=== PATIENT | male | born 1990 | race Caucasian/White ===

== ENCOUNTER 2022-08-06 21:23 | Inpatient (IN) | payer OTHER, SELFPAY ==
[2022-08-06] MEDS ORDERED: FAMOTIDINE 20 MG/2 ML VIAL IV ONE (22:04)
[2022-08-06] MEDS ORDERED: ONDANSETRON 4 MG/2 ML VIAL ONE (22:04)
[2022-08-06 22:24] LABS: Hematocrit 51.8 % (39.6-49.0); Lymphocytes % 12.4 % (15.3-44.8); MCV 90.4 fL (80-100); MPV 8.3 fL (7.6-11.3); RBC Red Blood Cell Count 5.73 M/uL (4.33-5.43)
[2022-08-06] MEDS ORDERED: NA CHLORIDE 0.9% 1,000 ML ONE (23:07)
[2022-08-06 23:36] LABS: Albumin 4.7 g/dL (3.4-5.0); Bilirubin Total 0.5 mg/dL (0.2-1.0); Potassium 4.2 mmol/L (3.5-5.1); Protein, Total 8.3 g/dL (6.4-8.2)
--- NOTE | 2022-08-06 23:36 | RAD REPORT ---
EXAM DESCRIPTION: CT - Abdomen Pelvis W Contrast - 08/06/2022 11:26 pm CLINICAL HISTORY: Abdominal pain COMPARISON: 2011 TECHNIQUE: Computed axial tomography of the abdomen pelvis was obtained. 100 cc Isovue-300 was admin istered intravenously. Oral contrast was not requested which limits evaluation of bowel and appendix All CT scans are performed using dose optimization technique as appropriate and may include automated exposure control or mA/KV adjustment according to patient size. FINDINGS: The liver, spleen, pancreas, adrenal and kidneys appear unremarkable. There is no evidence of diverticulitis. A normal appendix. Fluid within nondilated large and small bowel IMPRESSION: Fluid within nondilated large and small bowel may indicate an enteritis
[2022-08-06 23:54] LABS: Protime INR 0.99
[2022-08-07 00:18] LABS: Blood Morphology Comment NOT SEEN (NOT SEEN); Platelet Estimate ADEQ
--- NOTE | 2022-08-07 00:28 | EDPHYS ---
Physician Documentation [facility] Name: Fabio Grace Age: 32 yrs Sex: Male : 1990 Arrival Date: 08/06/2022 Time: 21:26 Bed 20 Private MD: ED Physician Keyur Eden HPI: 08/06 21:42 This 32 yrs old Male presents to ER via Unassigned with complaints of ms3 Nausea/Vomiting/Diarrhea. 21:42 32-year-old male with no past medical history presents for nausea, vomiting, diarrhea, ms3 abdominal pain that began 1 hour prior to arrival.. Patient rates his pain a 10/10 and states pain is generalized. Patient denies alleviating or inciting factors. Patient states he is never experiences before. Patient denies fevers, chills.. Historical: - Allergies: 22:03 No Known Allergies; ja4 - Immunization history:: Adult Immunizations up to date. ROS: 21:42 Constitutional: Negative for fever, and chills. ENT: Negative for injury, pain, and ms3 discharge, Neck: Negative for injury, pain, and swelling, Cardiovascular: Negative for chest pain, and palpitations. Respiratory: Negative for shortness of breath, cough, wheezing, and pleuritic chest pain. 21:42 Abdomen/GI: Negative for abdominal pain, nausea, vomiting, diarrhea, and constipation, MS/Extremity: Negative for injury and deformity. 21:42 Abdomen/GI: Positive for abdominal pain, nausea, vomiting, and diarrhea. 21:42 Skin: Positive for diaphoresis. 21:42 All other systems are negative. Exam: 21:42 Constitutional: This is a well developed, well nourished patient who is awake, alert, ms3 and in no acute distress. Head/Face: Normocephalic, atraumatic. Neck: Trachea midline, no cervical lymphadenopathy. Supple, full range of motion without nuchal rigidity, or vertebral point tenderness. No Meningismus. Chest/axilla: Normal chest wall appearance and motion. Nontender with no deformity. Cardiovascular: Regular rate and rhythm with a normal S1 and S2. No gallops, murmurs, or rubs. Normal PMI, no JVD. No pulse deficits. Respiratory: Lungs have equal breath sounds bilaterally, clear to auscultation and percussion. No rales, rhonchi or wheezes noted. No increased work of breathing, no retractions or nasal flaring. Abdomen/GI: Soft, non-tender, with normal bowel sounds. No distension or tympany. No guarding or rebound. No evidence of tenderness throughout. Skin: Warm, dry with normal turgor. Normal color with no rashes, no lesions, and no evidence of cellulitis. MS/ Extremity: Pulses equal, no cyanosis. Neurovascular intact. Full, normal range of motion. Neuro: Awake and alert, GCS 15, oriented to person, place, time, and situation. Cranial nerves II-XII grossly intact. Motor strength 5/5 in all extremities. Sensory grossly intact. Cerebellar exam normal. Normal gait. Psych: Awake, alert, with orientation to person, place and time. Behavior, mood, and affect are within normal limits. Vital Signs: 22:01 BP 125 / 79; Pulse 102; Resp 26; Pulse Ox 98% on R/A; Weight 77.11 kg; Height 6 ft. 0 ja4 in. (182.88 cm); Pain 8/10; 08/07 00:31 BP 117 / 77; Pulse 95; Resp 18; Pulse Ox 100% on R/A; ja4 00:31 Temp 97.6(O); ja4 06:33 BP 111 / 63; Pulse 74; Resp 16; Pulse Ox 99% on R/A; ja4 08/06 22:01 Body Mass Index 23.06 (77.11 kg, 182.88 cm) ja4 Tony Coma Score: 08/06 22:05 Eye Response: spontaneous(4). Verbal Response: oriented(5). Motor Response: obeys ja4 commands(6). Total: 15. MDM: 21:42 Differential diagnosis: Nonspecific abd pain, gastritis, appendicitis, viral ms3 gastroenteritis. 21:47 Patient medically screened. ms3 08/07 00:26 ED course: Discussed case with RONDA Alexander, and she accepts patient on behalf of alin Salas.. 01:50 Data reviewed: vital signs, nurses notes, lab test result(s), radiologic studies, and ms3 as a result, I will admit patient. Counseling: I had a detailed discussion with the patient and/or guardian regarding: the historical points, exam findings, and any diagnostic results supporting the discharge/admit diagnosis, lab results, radiology results, the need for further work-up and treatment in the hospital. ED course: No bacterial source of infection identified at this time. . 08/06 21:42 Order name: CBC with Diff; Complete Time: 00:26 wa3 08/06 21:42 Order name: CMP; Complete Time: 23:41 wa3 08/06 21:42 Order name: Lipase; Complete Time: 23:41 wa3 08/06 21:42 Order name: Urine Microscopic Only wa08/06 22:33 Order name: Manual Differential; Complete Time: 00:26 EDMS 08/06 23:00 Order name: Blood Culture Adult (2) [facility] 08/06 23:00 Order name: Lactate; Complete Time: 00:14 [facility] 08/06 23:00 Order name: Protime (+inr); Complete Time: 00:14 [facility] 08/06 23:00 Order name: Ptt, Activated; Complete Time: 00:14 [facility] 08/06 23:46 Order name: CREATININE WHOLE BLOOD; Complete Time: 00:14 EDNC 08/07 00:14 Order name: SARS RAPID; Complete Time: 03:47 wa3 08/07 02:33 Order name: Lactate Sepsis 2 HR Follow-up; Complete Time: 03:47 EDMS 08/07 02:51 Order name: CBC with Automated Diff; Complete Time: 03:47 EDMS 08/07 03:17 Order name: Basic Metabolic Panel; Complete Time: 03:47 EDMS 08/06 21:42 Order name: CT Abd/Pelvis - IV Contrast Only; Complete Time: 23:41 [facility] 08/06 21:42 Order name: IV Saline Lock; Complete Time: 22:00 [facility] 08/06 21:42 Order name: Labs collected and sent; Complete Time: 23:44 3 08/06 23:00 Order name: IV Saline Lock - Large Bore; Complete Time: 08:04 [facility] 08/06 23:00 Order name: Labs collected and sent; Complete Time: 08:04 [facility] 08/06 23:00 Order name: O2 Per Protocol; Complete Time: 08:04 [facility] 08/06 23:00 Order name: O2 Sat Monitoring; Complete Time: 08:04 [facility] 08/07 03:17 Order name: Phosphorus; Complete Time: 03:47 EDMS 08/07 03:17 Order name: Magnesium; Complete Time: 03:47 EDMS 08/07 08:47 Order name: Urine Dipstick-Ancillary EDMS 08/07 09:08 Order name: Urine Microscopic Only EDMS Administered Medications: 08/06 21:54 Drug: NS 0.9% 1000 ml Route: IV; Rate: 1 bolus; Site: right antecubital; ja4 22:00 Drug: Pepcid (famotidine) 20 mg Route: IVP; Site: right antecubital; ja4 22:00 Drug: Zofran (Ondansetron) 4 mg Route: IVP; Site: right antecubital; ja4 23:12 Drug: NS 0.9% 1000 ml Route: IV; Rate: 1000 ml; Site: left antecubital; [facility] 08/07 01:25 Drug: Zofran (Ondansetron) 4 mg Route: IVP; Site: right antecubital; ja4 Disposition Summary: 08/07/22 00:28 Hospitalization Ordered Hospitalization Status: Observation ms3 Provider: Anita Salas ms3 Condition: Stable ms3 Problem: new ms3 Symptoms: are unchanged ms3 Bed/Room Type: Standard ms3 [facility]08[facility]07[facility]22 18:11[facility] Room Assignment: ERHOLD-(08/07/22 18:11) Diagnosis - Acute Kidney injury ms3 - Dehydration ms3 - Nausea and vomiting ms3 - Abdominal pain ms3 - Leukocytosis ms3 Discharge Instructions: - Discharge Summary Sheet ph Forms: - Medication Reconciliation Form ms3 - SBAR form ms3 Signatures: Dispatcher [employer] EDMS Tiana Bynum Shelby, RN RN ss Shaina Maher, MELANY RN cg Keyur Eden DO DO ms3 Henry Muñoz RN RN [email or web address] Catarina Alvarez PA-C PA-C sb4 Corrections: (The following items were deleted from the chart) 01:14 00:28 Telemetry/MedSurg (observation) ms3 cg 01:14 00:28 ms3 cg 01:50 08/06 21:42 32-year-old male with no past medical history presents for nausea, ms3 vomiting, diarrhea, abdominal pain. Patient rates his pain a 10/10 and states pain is generalized. Patient denies alleviating or inciting factors. Patient states he is never experiences before. Patient denies fevers, chills.. ms3 08/07 15:43 01:14 [facility] 01:14 ERHOLD- cg : 15:43 Telemetry/MedSurg (observation) bd 18: 15:43 206 [facility]
--- NOTE | 2022-08-07 00:28 | ER ---
Nurse's Notes [facility] Name: Fabio Grace Age: 32 yrs Sex: Male : 1990 Arrival Date: 08/06/2022 Time: 21:26 Bed 20 Private MD: Diagnosis: Acute Kidney injury;Dehydration;Nausea and vomiting;Abdominal pain;Leukocytosis Presentation: 08/06 22:01 Chief complaint: Patient states: n/v/d. Coronavirus screen: At this time, the client ja4 does not indicate any symptoms associated with coronavirus-19. Ebola Screen: No symptoms or risks identified at this time. Initial Sepsis Screen: Does the patient meet any 2 criteria? RR > 20 per min. HR > 90 bpm. Yes Does the patient have a suspected source of infection? No. Patient's initial sepsis screen is negative. Risk Assessment: Do you want to hurt yourself or someone else? Patient reports no desire to harm self or others. Onset of symptoms was August 06, 2022. 22:01 Method Of Arrival: [facility] 22:01 Acuity: SAMY 3 ja4 Triage Assessment: 22:03 General: Appears distressed, uncomfortable, slender, well nourished, Behavior is ja4 cooperative, appropriate for age. Pain: Complains of pain in abdomen Pain currently is 8 out of 10 on a pain scale. Pain began suddenly, 2-3 days ago. GI: Reports upper abdominal pain, diarrhea, epigastric pain, intolerance of fluids, intolerance of food, nausea. Historical: - Allergies: 22:03 No Known Allergies; ja4 - Immunization history:: Adult Immunizations up to date. Screenin:05 Abuse screen: Denies threats or abuse. Nutritional screening: No deficits noted. ja4 Tuberculosis screening: No symptoms or risk factors identified. Fall Risk IV access (20 points). Assessment: 22:05 Reassessment: see triage for assessment. ja4 Vital Signs: 22:01 BP 125 / 79; Pulse 102; Resp 26; Pulse Ox 98% on R/A; Weight 77.11 kg; Height 6 ft. 0 ja4 in. (182.88 cm); Pain 8/10; 08/07 00:31 BP 117 / 77; Pulse 95; Resp 18; Pulse Ox 100% on R/A; ja4 00:31 Temp 97.6(O); ja4 06:33 BP 111 / 63; Pulse 74; Resp 16; Pulse Ox 99% on R/A; ja4 08/06 22:01 Body Mass Index 23.06 (77.11 kg, 182.88 cm) ja4 [place] Coma Score: 08/06 22:05 Eye Response: spontaneous(4). Verbal Response: oriented(5). Motor Response: obeys ja4 commands(6). Total: 15. ED Course: 21:26 Patient arrived in ED. dt4 21:27 Keyur Eden DO is Attending Physician. ms3 21:37 Henry Muñoz, RN is Primary Nurse. ja4 22:03 Triage completed. ja4 22:03 Arm band placed on left wrist. ja4 22:05 Patient has correct armband on for positive identification. Bed in low position. Call ja4 light in reach. Adult w/ patient. Client placed on continuous cardiac and pulse oximetry monitoring. NIBP monitoring applied. 22:05 No provider procedures requiring assistance completed. Inserted saline lock: 20 gauge ja4 in right antecubital area, using aseptic technique. Blood collected. 23:12 Blood Culture Adult (2) Sent. ja4 23:12 Lactate Sent. ja4 23:12 Protime (+inr) Sent. ja4 23:12 Ptt, Activated Sent. ja4 23:13 Inserted saline lock: 20 gauge in left antecubital area, using aseptic technique. Blood ja4 collected. 23:28 CT Abd/Pelvis - IV Contrast Only In Process Unspecified. EDMS 23:55 Notified ED physician of a critical lab result(s). lactate of 3.9 Dr Eden notified. bb 08/07 00:18 Notified ED physician of a critical lab result(s). Band count of 9% Dr Eden notified. bb 00:22 SARS RAPID Sent. ja4 00:27 Anita Salas MD is Hospitalizing Provider. ms3 Administered Medications: 08/06 21:54 Drug: NS 0.9% 1000 ml Route: IV; Rate: 1 bolus; Site: right antecubital; ja4 22:00 Drug: Pepcid (famotidine) 20 mg Route: IVP; Site: right antecubital; ja4 22:00 Drug: Zofran (Ondansetron) 4 mg Route: IVP; Site: right antecubital; ja4 23:12 Drug: NS 0.9% 1000 ml Route: IV; Rate: 1000 ml; Site: left antecubital; ja4 08/07 01:25 Drug: Zofran (Ondansetron) 4 mg Route: IVP; Site: right antecubital; ja4 Medication: 08/06 22:05 VIS not applicable for this client. ja4 Outcome: 08/07 00:28 Decision to Hospitalize by Provider. ms3 02:27 Admitted to ER Hold. Please see [facility] for further documentation. ja4 18:30 Patient left the ED. ph Signatures: Dispatcher [employer] EDMS Em Zhang RN RN Nelly Hanley RN RN Keyur Eden DO DO ms3 Henry Muñoz RN RN ja4 Rianna Cardoza dt4
[2022-08-07 01:06] LABS: SARS-CoV-2 Antigen Rapid Res Negative (Negative)
[2022-08-07] MEDS ORDERED: ONDANSETRON 4 MG/2 ML VIAL ONE ×3 (01:26→08:24)
--- NOTE | 2022-08-07 01:52 | P.HP ---
Certification for Inpatient Patient admitted to: Observation With expected LOS: <2 Midnights Patient will require the following post-hospital care: None Practitioner: I am a practitioner with admitting privileges, knowledge of patient current condition, hospital course, and medical plan of care. 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 Tachycardic upon arrival to ED. His labs are significant for WBC 24, creatinine 1.38, 9 bands, lactic acid 3.9. CT abdomen pelvis showed Fluid within nondilated large and small bowel may indicate an enteritis. He was given 2 L of fluid, Pepcid, and Zofran in the ED. He has improved. ED provider wishes admit patient for observation. Allergies No Known Allergies Allergy (Unverified 10/21/12 22:45) Home medications list reviewed: Yes - Past Medical/Surgical History Diabetic: No Past Medical History: Patient denies medical history Past Surgical History: Patient denies surgical history Psychosocial/ Personal History: Patient lives at home. - Family History Family History: Reviewed- Non-Contributory - Social History Smoking Status: Never smoker Alcohol use: Yes CD- Drugs: No Caffeine use: Yes Place of Residence: Home Review of Systems General: Sweats Gastrointestinal: Nausea, Vomiting, Abdominal Pain Physical Examination - Physical Exam General: Alert, In no apparent distress, Other (diaphoretic) HEENT: Atraumatic, PERRLA, EOMI, Sclerae nonicteric Neck: Supple, 2+ carotid pulse no bruit, No LAD, Without JVD or thyroid abnormality Respiratory: Clear to auscultation bilaterally, Normal air movement Cardiovascular: Regular rate/rhythm, Normal S1 S2 Gastrointestinal: Normal bowel sounds, No tenderness Musculoskeletal: No tenderness Integumentary: No rashes Neurological: Normal speech, Normal strength at 5/5 x4 extr, Normal tone, Normal affect - Studies Laboratory Data (last 24 hrs) 08/06/22 22:58: PT 10.9, INR 0.99, APTT 23.9 L 08/06/22 22:50: Sodium 138, Potassium 4.2, BUN 20 H, Creatinine 1.38 H, Glucose 157 H, Total Bilirubin 0.5, AST 14 L, ALT 23, Alkaline Phosphatase 52, Lipase 94 08/06/22 21:54: WBC 24.40 H*, Hgb 17.3, Hct 51.8 H, Plt Count 278 Assessment and Plan - Problems (Diagnosis) (1) Viral enteritis Current Visit: Yes Status: Acute (2) SABIHA (acute kidney injury) Current Visit: Yes Status: Acute (3) Dehydration Current Visit: Yes Status: Acute (4) Leukocytosis Current Visit: Yes Status: Acute Qualifiers: Leukocytosis type: bandemia Qualified Code(s): D72.825 - Bandemia - Plan -Continue aggressive IV fluid hydration. -Trend lactic acid and WBC. Both trending down. -Supportive measures with antiemetics and pain meds PRN. -Clear liquid diet, advance as tolerated. -Monitor and replete electrolytes per protocol. -Reconcile and continue home medications. -Lovenox for VTE prophylaxis -Full code Discharge Plan: Home Plan to discharge in: 24 Hours - Advance Directives Does patient have a Living Will: No Does patient have a Durable POA for Healthcare: No - Code Status/Comfort Care Code Status Assessed: Yes (Full) Critical Care: No Time Spent Managing Pts Care (In Minutes): 50
[2022-08-07] MEDS ORDERED: ACETAMINOPHEN 500 MG TAB PO PRN (01:58)
[2022-08-07] MEDS: NA CHLORIDE 0.9% 1,000 ML IV SCH ×2 (02:00→12:00)
[2022-08-07] MEDS ORDERED: NA CHLORIDE 0.9% 1,000 ML ONE ×2 (02:13→12:56)
[2022-08-07 02:19] VITALS: BMI 23.0
[2022-08-07 02:45] LABS: Absolute Lymphocytes (CBC) 0.3 K/uL (0.7-4.9); Hematocrit 44.1 % (39.6-49.0); Lymphocytes % 1.3 % (15.3-44.8); MCV 89.9 fL (80-100); MPV 8.2 fL (7.6-11.3)
[2022-08-07 03:16] LABS: Magnesium 1.6 mg/dL (1.8-2.4); Potassium 4.1 mmol/L (3.5-5.1)
[2022-08-07] MEDS: ONDANSETRON 4 MG/2 ML VIAL IV PRN ×2 (05:58→08:23)
[2022-08-07 08:46] LABS: Urine Blood Trace-intact (Negative); Urine Glucose Negative (Negative); Urine Protein Negative (Negative); Urine Specific Gravity >=1.030 (1.005-1.030)
[2022-08-07] MEDS ORDERED: ENOXAPARIN 40 MG/0.4 ML SQ SCH (09:00)
[2022-08-07 09:07] LABS: Urine RBC <5 /HPF (None Seen)
[2022-08-07] MEDS ORDERED: PROMETHAZINE 25 MG TABLET ONE (12:14)
[2022-08-07] MEDS ORDERED: PROMETHAZINE 25 MG TABLET PO ONE (12:20)
[2022-08-07 16:23] VITALS: TEMP 97.8
[2022-08-07 16:27] VITALS: BP 110/67
--- NOTE | 2022-08-07 17:54 | P.DS ---
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 Tachycardic upon arrival to ED. His labs are significant for WBC 24, creatinine 1.38, 9 bands, lactic acid 3.9. CT abdomen pelvis showed Fluid within nondilated large and small bowel may indicate an enteritis. He was given 2 L of fluid, Pepcid, and Zofran in the ED. He has improved. ED provider wishes admit patient for observation. Hospital Course: Has done well during hospital stay. Patient is tolerating diet. He is no longer having as much diarrhea. He is wanting to go home. Plan to discharge him home and continue with antiemetics. Encouraged him to drink plenty of fluids. He is stable for discharge. Vital Signs/Physical Exam: Temp Pulse Resp BP Pulse Ox 97.8 F 78 18 110/67 97 08/07/22 16:00 08/07/22 16:00 08/07/22 16:00 08/07/22 12:00 08/07/22 16:00 General: Alert, In no apparent distress, Oriented x3 Laboratory Data at Discharge: WBC 21.60 K/uL (4.3-10.9) H* 08/07/22 02:05 Hgb 15.2 g/dL (13.6-17.9) D 08/07/22 02:05 Hct 44.1 % (39.6-49.0) 08/07/22 02:05 Plt Count 232 K/uL (152-406) 08/07/22 02:05 PT 10.9 SECONDS (9.5-12.5) 08/06/22 22:58 INR 0.99 08/06/22 22:58 APTT 23.9 SECONDS (24.3-36.9) L 08/06/22 22:58 Sodium 139 mmol/L (136-145) 08/07/22 02:05 Potassium 4.1 mmol/L (3.5-5.1) 08/07/22 02:05 BUN 20 mg/dL (7-18) H 08/07/22 02:05 Creatinine 1.24 mg/dL (0.55-1.3) 08/07/22 02:05 Glucose 140 mg/dL (74-106) H 08/07/22 02:05 Phosphorus 1.0 mg/dL (2.5-4.9) L 08/07/22 02:05 Magnesium 1.6 mg/dL (1.8-2.4) L 08/07/22 02:05 Total Bilirubin 0.5 mg/dL (0.2-1.0) 08/06/22 22:50 AST 14 U/L (15-37) L 08/06/22 22:50 ALT 23 U/L (12-78) 08/06/22 22:50 Alkaline Phosphatase 52 U/L (45-117) 08/06/22 22:50 Lipase 94 U/L (73-393) 08/06/22 22:50 Home Medications: Ciprofloxacin HCl 250 mg PO BID #14 tab 08/07/22 Loperamide HCl [Imodium A-D] 2 mg PO Q12HP PRN #20 tab 08/07/22 Promethazine Tab [Phenergan] 12.5 mg PO Q6HP PRN #20 tab 08/07/22 metroNIDAZOLE [Flagyl] 500 mg PO Q8H #21 tab 08/07/22 predniSONE [Deltasone] 20 mg PO BID #6 tab 08/07/22 New Medications: Ciprofloxacin HCl 250 mg PO BID #14 tab metroNIDAZOLE [Flagyl] 500 mg PO Q8H #21 tab Loperamide HCl [Imodium A-D] 2 mg PO Q12HP PRN #20 tab PRN Reason: Diarrhea Promethazine Tab [Phenergan] 12.5 mg PO Q6HP PRN #20 tab PRN Reason: Nausea / Vomiting predniSONE [Deltasone] 20 mg PO BID #6 tab Physician Discharge Instructions: -DC IV and DC home -Follow-up with PCP in 1 to 2 weeks -Follow-up with GI in 1 to 2 weeks if symptoms have not resolved -Please call Dr. Salas at [phone] if any questions regarding hospital stay -Please call nursing station at [phone] if any nursing or medication questions -Return to the emergency room if symptoms worsen Diet: Regular Activity: Fall precautions Followup: NONE,NONE [Primary Care Provider] - Time spent managing pt's care (in minutes): 35
[2022-08-08 20:52] VITALS: O2SAT 99
== END 2022-08-07 18:30 | disposition home or self-care (01) | DRG 392 ==
LOC: ER 21:23 → ERHOLD 08-07 01:29 → OBSVTOIN 08-07 13:44 → 2ND 08-07 16:49 → ERHOLD 08-07 17:49
PROVIDERS: ADMIT Hospitalist; ATTEND Hospitalist
DX: A08.4 Viral intestinal infection, unspecified (principal); N17.9 Acute kidney failure, unspecified; E86.0 Dehydration; D72.825 Bandemia; Z79.52 Long term (current) use of systemic steroids; Z79.899 Other long term (current) drug therapy; Z20.822 Contact with and (suspected) exposure to COVID-19
CPT/HCPCS: 36415; 74177; 80048; 80053; 81003; 81015; 82565; 83605; 83690; 83735; 84100; 85025; 85610; 85730; 87040; 87811; G0378; J2405; J7030; Q0169; Q9967

== ENCOUNTER 2022-10-05 08:48 | Emergency (ER) | payer SELFPAY ==
[2022-10-05] MEDS ORDERED: LEVALBUTEROL 1.25 MG/3 ML NEB ONE (09:51)
[2022-10-05 10:04] LABS: Absolute Lymphocytes (CBC) 1.2 K/uL (0.7-4.9); Hematocrit 42.3 % (39.6-49.0); Lymphocytes % 12.2 % (15.3-44.8); MCV 88.7 fL (80-100); MPV 7.3 fL (7.6-11.3); RBC Red Blood Cell Count 4.77 M/uL (4.33-5.43)
[2022-10-05 10:18] LABS: Potassium 3.9 mmol/L (3.5-5.1)
[2022-10-05] MEDS ORDERED: Ringers Lactate 1,000 ML IV ONE (10:37)
[2022-10-05] MEDS ORDERED: dexAMETHasone 10 MG/ML VIAL ONE (10:39)
--- NOTE | 2022-10-05 10:40 | RAD REPORT ---
EXAM DESCRIPTION: RAD - Chest Single View - 10/05/2022 10:00 am CLINICAL HISTORY: cough, sob COMPARISON: Two view chest October 2012 TECHNIQUE: AP portable chest image was obtained 10/05/2022 10:00 am . FINDINGS: Lungs are clear. Heart and vasculature are normal. No measurable pleural effusion and no p neumothorax. No acute bony abnormality seen. No acute aortic findings suspected. IMPRESSION: No acute cardiopulmonary process.
[2022-10-05] MEDS ORDERED: ONDANSETRON 4 MG/2 ML VIAL ONE (11:04)
[2022-10-05 11:39] LABS: SARS-COV-2 RT PCR NEGATIVE (NEGATIVE)
--- NOTE | 2022-10-05 11:58 | EDPHYS ---
Physician Documentation [facility] Name: Fabio Grace Age: 32 yrs Sex: Male : 1990 Arrival Date: 10/05/2022 Time: 08:51 Bed 8 Private MD: ED Physician Don Mitchell HPI: 10/05 09:39 This is a 32 year old male with no chronic medical conditions that presents to the ED [facility] with complaints of cough, sob, fever, wheezing beginning approx 1 month ago. Also complains of diarrhea. Denies abdominal pain. patient has had some nausea. Took PO promethazine to help alleviate symptoms. . Historical: - Allergies: 09:20 No Known Allergies; ss - Home Meds: 09:20 None [Active]; ss - PMHx: 09:20 None; ss - PSHx: 09:20 Tonsillectomy; ss - Immunization history:: Client reports having NOT received the Covid vaccine. - Social history:: Patient uses street drugs, marijuana, Patient/guardian denies using Smoking status: unknown. ROS: 09:39 Constitutional: Positive for body aches, chills, fever. [facility] 09:39 Respiratory: Positive for cough, shortness of breath, wheezing. 09:39 Abdomen/GI: Positive for diarrhea. 09:39 All other systems are negative. Exam: 09:39 Head/Face: atraumatic. Eyes: EOMI, no conjunctival erythema appreciated ENT: Moist [facility] Mucus Membranes Neck: Trachea midline, Supple Chest/axilla: Normal chest wall appearance and motion. Cardiovascular: Regular rate and rhythm. No edema appreciated 09:39 Abdomen/GI: Non distended Back: Normal ROM Skin: General appearance color normal MS/ Extremity: Moves all extremities, no obvious deformities appreciated, no edema noted to the lower extremities Neuro: Awake and alert Psych: Behavior is normal, Mood is normal, Patient is cooperative and pleasant 09:39 Constitutional: The patient appears in no acute distress, alert, awake. 09:39 Respiratory: mild respiratory distress is noted, Respirations: normal, Breath sounds: wheezing: that is moderate, is heard diffusely. Vital Signs: 09:18 BP 124 / 76; Pulse 96; Resp 16; Temp 98.1(O); Pulse Ox 99% on R/A; Weight 77.11 kg; ss Height 6 ft. 4 in. (193.04 cm); Pain 5/10; 11:01 BP 110 / 69; Pulse 115; Resp 20; Pulse Ox 99% ; bp 12:13 BP 113 / 69; Pulse 94; Resp 19; Pulse Ox 100% ; bp 09:18 Body Mass Index 20.69 (77.11 kg, 193.04 cm) ss MDM: 09:23 Patient medically screened. [facility] 11:50 Data reviewed: vital signs, nurses notes. Counseling: I had a detailed discussion with [facility] the patient and/or guardian regarding: the historical points, exam findings, and any diagnostic results supporting the discharge/admit diagnosis, lab results, radiology results, the need for outpatient follow up, to return to the emergency department if symptoms worsen or persist or if there are any questions or concerns that arise at home. ED course: Decreased wheezing on reauscultation. Advised to follow up with pcp and otherwise given strict return precautions. patient understood and agrees with the plan of care. . 10/05 09:38 Order name: CBC with Diff; Complete Time: 10:09 [facility] 10/05 09:38 Order name: BMP; Complete Time: 10:26 [facility] 10/05 09:38 Order name: Lactate w/ 2H reflex if indic.; Complete Time: 10:26 [facility] 10/05 09:38 Order name: Blood Culture Adult (2) [facility] 10/05 09:38 Order name: COVID-19/FLU A+B; Complete Time: 11:41 [facility] 10/05 09:39 Order name: Chest Single View XRAY; Complete Time: 10:44 [facility] 10/05 09:38 Order name: Saline Lock; Complete Time: 09:56 [facility] Administered Medications: 09:50 Drug: Xopenex (levalbuterol) (3) 1.25 mg Route: Inhalation; bp 10:30 Drug: Lactated Ringers Solution 1000 ml Route: IV; Rate: 1000 bolus; Site: right bp antecubital; 12:13 Follow up: IV Status: Completed infusion; IV Intake: 1000ml bp 10:45 Drug: Decadron - Dexamethasone 10 mg Route: IVP; Site: right antecubital; bp 12:12 Follow up: Response: No adverse reaction bp 11:06 Drug: Zofran (Ondansetron) 4 mg Route: IVP; Site: right antecubital; bp 12:12 Follow up: Response: No adverse reaction bp 12:05 Drug: Tamiflu (oseltamivir) 75 mg Route: PO; bp 12:13 Follow up: Response: No adverse reaction bp Disposition Summary: 10/05/22 11:57 Discharge Ordered Location: Home [facility] Condition: Stable [facility] Diagnosis - Influenza [facility] - Acute bronchospasm [facility] Followup: [facility] - With: Private Physician - When: 2 - 3 days - Reason: Recheck today's complaints, Continuance of care, Re-evaluation by your physician Discharge Instructions: - Discharge Summary Sheet [facility] - Bronchospasm, Adult [facility] - Influenza, Adult [facility] Forms: - Medication Reconciliation Form [facility] - Thank You Letter [facility] - Antibiotic Education [facility] - Prescription Opioid Use [facility] Prescriptions: - Medrol (Jared) 4 mg Oral Tablets, Dose Pack - take 1 tablet by ORAL route as directed - follow package instructions; 1 jmm packet; Refills: 0, Product Selection Permitted - Tamiflu 75 mg Oral Capsule - take 1 tablet by ORAL route every 12 hours for 5 days; 10 tablet; Refills: 0, [facility] Product Selection Permitted Addendum: 10/07/2022 13:31 Co-signature as Attending Physician, Don Mitchell MD I agree with the assessment and c rosenthal plan of care. Signatures: Dispatcher [employer] Don Moraes MD MD cha Mickail, Joel, PA PA jmm Smirch, Shelby, MELANY MOSLEY ss Dedrick Fuentes RN RN bp
--- NOTE | 2022-10-05 11:58 | ER ---
Nurse's Notes [facility] Name: Fabio Grace Age: 32 yrs Sex: Male : 1990 Arrival Date: 10/05/2022 Time: 08:51 Bed 8 Private MD: Diagnosis: Influenza;Acute bronchospasm Presentation: 10/05 09:18 Chief complaint: Patient states: Productive cough, headache and body aches ss approximately 1 month ago. Pt reports he was given antibiotics by his doctor without any testing, but the antibiotics are not helping. Spouse states, "He felt a little better, but yesterday he got worse.". Coronavirus screen: Client presents with at least one sign or symptom that may indicate coronavirus-19. Ebola Screen: Patient denies exposure to infectious person. Patient denies travel to an Ebola-affected area in the 21 days before illness onset. Initial Sepsis Screen: Does the patient meet any 2 criteria? No. Patient's initial sepsis screen is negative. Does the patient have a suspected source of infection? No. Patient's initial sepsis screen is negative. Risk Assessment: Do you want to hurt yourself or someone else? Patient reports no desire to harm self or others. Onset of symptoms was August 2022. 09:18 Method Of Arrival: Ambulatory ss 09:18 Acuity: SAMY 3 ss Triage Assessment: 09:20 General: Appears distressed, Behavior is cooperative, appropriate for age, anxious. bp Pain: Complains of pain in GENERAL [place]. EENT: No deficits noted. Neuro: No deficits noted. Cardiovascular: No deficits noted. Respiratory: Breath sounds are coarse bilaterally. GI: No signs and/or symptoms were reported involving the gastrointestinal system. : No signs and/or symptoms were reported regarding the genitourinary system. Derm: No deficits noted. Musculoskeletal: No deficits noted. Historical: - Allergies: 09:20 No Known Allergies; ss - Home Meds: 09:20 None [Active]; ss - PMHx: 09:20 None; ss - PSHx: 09:20 Tonsillectomy; ss - Immunization history:: Client reports having NOT received the Covid vaccine. - Social history:: Patient uses street drugs, marijuana, Patient/guardian denies using Smoking status: unknown. Screenin:00 Abuse screen: Denies threats or abuse. Denies injuries from another. Nutritional bp screening: No deficits noted. Tuberculosis screening: No symptoms or risk factors identified. Fall Risk None identified. Assessment: 09:20 General: SEE TRIAGE NOTE. bp 11:00 Reassessment: No changes from previously documented assessment. Patient and/or family bp updated on plan of care and expected duration. Pain level reassessed. Vital Signs: 09:18 BP 124 / 76; Pulse 96; Resp 16; Temp 98.1(O); Pulse Ox 99% on R/A; Weight 77.11 kg; ss Height 6 ft. 4 in. (193.04 cm); Pain 5/10; 11:01 BP 110 / 69; Pulse 115; Resp 20; Pulse Ox 99% ; bp 12:13 BP 113 / 69; Pulse 94; Resp 19; Pulse Ox 100% ; bp 09:18 Body Mass Index 20.69 (77.11 kg, 193.04 cm) ED Course: 08:51 Patient arrived in ED. as 09:20 Triage completed. 09:20 Arm band placed on right wrist. 09:21 Iglesia Christie PA is PHCP. [facility] 09:21 Don Mitchell MD is Attending Physician. [facility] 09:23 Dedrick Fuentes, MELANY is Primary Nurse. bp 09:50 Inserted saline lock: 20 gauge in right antecubital area, using aseptic technique. bp Blood collected. 09:53 Initial lab(s) drawn, by wi, sent to lab. First set of blood cultures drawn by wi. jw7 10:00 Patient has correct armband on for positive identification. Bed in low position. Call bp light in reach. Side rails up X2. 10:02 Chest Single View XRAY In Process Unspecified. EDMS 10:25 Second set of blood cultures drawn by wi. jw7 12:13 No provider procedures requiring assistance completed. IV discontinued, intact, bp bleeding controlled, No redness/swelling at site. Pressure dressing applied. Administered Medications: 09:50 Drug: Xopenex (levalbuterol) (3) 1.25 mg Route: Inhalation; bp 10:30 Drug: Lactated Ringers Solution 1000 ml Route: IV; Rate: 1000 bolus; Site: right bp antecubital; 12:13 Follow up: IV Status: Completed infusion; IV Intake: 1000ml bp 10:45 Drug: Decadron - Dexamethasone 10 mg Route: IVP; Site: right antecubital; bp 12:12 Follow up: Response: No adverse reaction bp 11:06 Drug: Zofran (Ondansetron) 4 mg Route: IVP; Site: right antecubital; bp 12:12 Follow up: Response: No adverse reaction bp 12:05 Drug: Tamiflu (oseltamivir) 75 mg Route: PO; bp 12:13 Follow up: Response: No adverse reaction bp Medication: 12:14 VIS not applicable for this client. bp Intake: 12:13 IV: 1000ml; Total: 1000ml. bp Outcome: 11:57 Discharge ordered by . karan 12:13 Discharged to home ambulatory, with family. bp 12:13 Condition: stable 12:13 Discharge instructions given to patient, Instructed on discharge instructions, follow up and referral plans. medication usage, Demonstrated understanding of instructions, follow-up care, medications, Prescriptions given X 2. 12:14 Patient left the ED. bp Signatures: Dispatcher [employer] EDMS Iglesia Christie PA PA jmm Martinez, Amelia as Smirch, Shelby, RN RN Dedrick Fuentes RN RN bp Daphney Luo jw7
[2022-10-05] MEDS ORDERED: OSELTAMIVIR 75 MG CAP ONE (12:05)
[2022-10-05 12:47] VITALS: TEMP 98.1
[2022-10-05 12:49] VITALS: BP 113/69; O2SAT 100
== END 2022-10-05 12:14 | disposition home or self-care (01) ==
LOC: ER 08:48
DX: J11.1 Influenza due to unidentified influenza virus with other respiratory manifestations (principal); J98.01 Acute bronchospasm; Z20.822 Contact with and (suspected) exposure to COVID-19
CPT/HCPCS: 0240U; 36415; 71045; 80048; 83605; 85025; 87040; 96361; 96374; 96375; 99284; J1100; J2405; J7120; J7614

== ENCOUNTER 2024-03-29 22:30 | Emergency (ER) | payer SELFPAY ==
--- OUTSIDE RECORDS SUMMARY | 2024-03-29 22:33 | XMS REPORT | Continuity of Care Document ---
Author Name Unknown Address [address] [place] [address] [address] th[address] Address [address] [facility] [address] [place] [address] Care Team Providers Care [employer] T[employer] Molder Name Role Phone Unavailable Unavailable Unavailable Payers Payer Name Policy Type Policy Number Effective Date Expirati on Date Source [facility] [id number] 2022 00:00:00 Encounters Start Date/Time End Date/Time Encounter Type Admission Type Attending Clinicians Care Facility Care Department Encounter ID Source 2023-03-19 12:43:59 Outpatient [facility] [id number] [facility] 2023-03-18 08:31:46 Outpatient [facility] [id number] [facility]
[2024-03-29] MEDS ORDERED: FAMOTIDINE 20 MG/2 ML VIAL IV ONE (22:41)
[2024-03-29] MEDS ORDERED: NA CHLORIDE 0.9% 1,000 ML ONE (22:41)
[2024-03-29] MEDS ORDERED: METHYLPREDNISOLONE 40 MG INJ ONE ×2 (22:41→22:46)
--- NOTE | 2024-03-30 00:05 | ER ---
Nurse's Notes [facility] Name: Fabio Grace Age: 34 yrs Sex: Male : 1990 Arrival Date: 03/29/2024 Time: 22:30 Bed 6 Private MD: Diagnosis: allergic reaction to unknown substance Presentation: 03/29 22:52 Chief complaint: Patient states: pt having an allergic reaction to an unknown allergen. as6 pt states he is having chills, feels feverish, has swollen lips, and is having difficulty breathing. Coronavirus screen: At this time, the client does not indicate any symptoms associated with coronavirus-19. Ebola Screen: No symptoms or risks identified at this time. Onset: The symptoms/episode began/occurred suddenly. Anaphylaxis evaluation, abdominal pain chest pain. Initial Sepsis Screen: Does the patient meet any 2 criteria? No. Patient's initial sepsis screen is negative. Does the patient have a suspected source of infection? No. Patient's initial sepsis screen is negative. Risk Assessment: Do you want to hurt yourself or someone else? Patient reports no desire to harm self or others. Onset of symptoms was March 29, 2024. 22:52 Method Of Arrival: Ambulatory as6 22:52 Acuity: SAMY 2 as6 Historical: - Allergies: 22:52 No Known Allergies; as6 - PMHx: 22:52 None; as6 - PSHx: 22:52 Tonsillectomy; as6 - Immunization history:: Adult Immunizations up to date. - Infectious Disease History:: Denies. - Social history:: Smoking status: Patient reports the use of cigarette tobacco products, smokes one-half pack cigarettes per day. Screenin:17 [facility] ED Fall Risk Assessment (Adult) History of falling in the last 3 months, cm10 including since admission No falls in past 3 months (0 pts) Confusion or Disorientation No (0 pts) Intoxicated or Sedated No (0 pts) Impaired Gait No (0 pts) Mobility Assist Device Used No (0 pt) Altered Elimination No (0 pt) Score/Fall Risk Level 0 - 2 = Low Risk Oriented to surroundings, Maintained a safe environment, Hourly rounding (assess needs \T\ fall precautionary measures) done. Abuse screen: Denies threats or abuse. Denies injuries from another. Nutritional screening: No deficits noted. Tuberculosis screening: No symptoms or risk factors identified. Assessment: 23:20 Reassessment: Patient appears in no apparent distress at this time. Patient and/or 10 family updated on plan of care and expected duration. Pain level reassessed. Patient is alert, oriented x 3, equal unlabored respirations, skin warm/dry/pink. Patient states feeling better. Patient states symptoms have improved. General: Appears in no apparent distress. comfortable, Behavior is calm, cooperative. Pain: Denies pain. Neuro: No deficits noted. Level of Consciousness is awake, alert, obeys commands, Oriented to person, place, time, situation, Appropriate for age. Cardiovascular: No deficits noted. Heart tones present Patient's skin is warm and dry. Rhythm is sinus rhythm. Respiratory: No deficits noted. Airway is patent Respiratory effort is even, unlabored, Respiratory pattern is regular, symmetrical, Breath sounds are clear bilaterally. GI: No deficits noted. No signs and/or symptoms were reported involving the gastrointestinal system. : No deficits noted. No signs and/or symptoms were reported regarding the genitourinary system. EENT: No deficits noted. No signs and/or symptoms were reported regarding the EENT system. Derm: No deficits noted. Skin is intact, Skin is pink, warm \T\ dry. Musculoskeletal: No deficits noted. No signs and/or symptoms reported regarding the musculoskeletal system. Range of motion: intact in all extremities. 03/30 00:20 Reassessment: Patient appears in no apparent distress at this time. No changes from [facility] previously documented assessment. Patient and/or family updated on plan of care and expected duration. Pain level reassessed. Patient is alert, oriented x 3, equal unlabored respirations, skin warm/dry/pink. Patient states feeling better. Patient states symptoms have improved. Vital Signs: 03/29 22:52 BP 141 / 83; Pulse 133; Resp 19 S; Temp 98.8(O); Pulse Ox 98% on R/A; Weight 83.91 kg as6 (R); Height 6 ft. 4 in. (R); Pain 0/10; 23:00 BP 124 / 77; Pulse 87; Resp 18; Pulse Ox 95% on R/A; cm10 03/30 00:00 BP 121 / 72; Pulse 82; Resp 18; Pulse Ox 94% ; cm10 03/29 22:52 Body Mass Index 22.52 (83.91 kg, 193.04 cm) as6 05 22:52 Pain Scale: Adult as6 ED Course: 05 22:32 Patient arrived in ED. im 22:35 Catarina Alvarez PA-C is PHCP. sb4 22:35 Heath Haley MD is Attending Physician. sb4 22:41 Juan Jose Patel, MELANY is Primary Nurse. rv 22:51 Inserted saline lock: 18 gauge in right antecubital area, using aseptic technique. as6 Blood collected. 22:52 Arm band placed on. as6 22:54 Triage completed. as6 23:17 Patient has correct armband on for positive identification. Bed in low position. Call cm10 light in reach. Side rails up X 1. Provided Education on: ER process and procedures. 03/30 00:20 No provider procedures requiring assistance completed. IV discontinued, intact, cm10 bleeding controlled, No redness/swelling at site. Pressure dressing applied. Administered Medications: 03/29 22:44 Not Given (Physician Discretion): methylprednisolone sodium [id number] mg IM once sb4 22:52 Drug: NS 0.9% IV 1000 ml IV at 1 bolus Per protocol; 1000 mL bolus Route: IV; Rate: 1 as6 bolus; Site: right antecubital; 23:15 Follow up: Response: No adverse reaction; IV Status: Completed infusion; IV Intake: cm10 1000ml 22:52 Drug: Famotidine IVP 20 mg IVP once; dilute with 10 mL 0.9% NaCl; give over 2 minutes as6 Route: IVP; Site: right antecubital; 23:15 Follow up: Response: No adverse reaction cm10 22:52 Drug: MethylPrednisoLONE IVP 125 mg IVP once Route: IVP; Site: right antecubital; as6 23:15 Follow up: Response: No adverse reaction cm10 Medication: 23:17 VIS not applicable for this client. cm10 Intake: 23:15 IV: 1000ml; Total: 1000ml. cm10 Outcome: 03/30 00:04 Discharge ordered by . sb4 00:20 Discharged to home ambulatory, cm10 00:20 Condition: good 00:20 Discharge instructions given to patient, Instructed on discharge instructions, follow up and referral plans. medication usage, Demonstrated understanding of instructions, follow-up care, medications, Prescriptions given X 3, 00:21 Patient left the ED. cm10 Signatures: Juan Jose Patel, RN RN Silvio Myers RN RN asCatarina Sanders PA-C PA-C sb4 Kae Dunbar Clarissa, RN RN cm10
--- NOTE | 2024-03-30 00:05 | EDPHYS ---
Physician Documentation [facility] Name: Fabio Grace Age: 34 yrs Sex: Male : 1990 Arrival Date: 03/29/2024 Time: 22:30 Bed 6 Private MD: ED Physician Heath Haley HPI: 03/29 22:36 This 34 yrs old Male presents to ER via Unassigned with complaints of Allergic Reaction.sb4 23:01 patient states that he started developing redness over his entire body out of no where sb4 as well as lip swelling and burning feeling in his body. states he ate seafood 1 hour prior (which he has had no issues with in the past) then also took an old augmentin pill because he had a sore throat. took 50 mg PO benadryl [employer]NA[employer]. denies any known allergies or prior allergic reactions. Historical: - Allergies: 22:52 No Known Allergies; as6 - PMHx: 22:52 None; as6 - PSHx: 22:52 Tonsillectomy; as6 - Immunization history:: Adult Immunizations up to date. - Infectious Disease History:: Denies. - Social history:: Smoking status: Patient reports the use of cigarette tobacco products, smokes one-half pack cigarettes per day. ROS: 23:01 Constitutional: Negative for fever, chills, and weight loss, sb4 23:01 Skin: Positive for per HPI, 23:01 All other systems are negative, Exam: 23:01 Head/Face: Normocephalic, atraumatic. Eyes: Extra-ocular motions intact. Periorbital sb4 areas with no swelling, redness, or edema. ENT: Mucous membranes moist. Respiratory: Lungs have equal breath sounds bilaterally, clear to auscultation and percussion. No rales, rhonchi or wheezes noted. No increased work of breathing, no retractions or nasal flaring. Abdomen/GI: Soft, non-tender, no distension. 23:01 Constitutional: The patient appears alert, awake, anxious, 23:01 Cardiovascular: Rate: tachycardic, Rhythm: regular, 23:01 Skin: Appearance: Color: pink, Temperature: warm, Vital Signs: 22:52 BP 141 / 83; Pulse 133; Resp 19 S; Temp 98.8(O); Pulse Ox 98% on R/A; Weight 83.91 kg as6 (R); Height 6 ft. 4 in. (R); Pain 0/10; 23:00 BP 124 / 77; Pulse 87; Resp 18; Pulse Ox 95% on R/A; cm10 03/30 00:00 BP 121 / 72; Pulse 82; Resp 18; Pulse Ox 94% ; cm10 03/29 22:52 Body Mass Index 22.52 (83.91 kg, 193.04 cm) as6 03/29 22:52 Pain Scale: Adult as6 MDM: 03/29 22:35 Patient medically screened. sb4 03/30 00:04 Data reviewed: vital signs, nurses notes, I have discussed the patient's sb4 presentation/case with the attending Emergency Department Physician; and as a result, I will discharge patient. Counseling: I had a detailed discussion with the patient and/or guardian regarding the historical points, exam findings, and any diagnostic results supporting the discharge/admit diagnosis, to return to the emergency department if symptoms worsen or persist or if there are any questions or concerns that arise at home. 03/29 22:35 Order name: IV Start; Complete Time: 22:41 sb4 03/29 22:35 Order name: Cardiac monitoring; Complete Time: 22:41 sb4 03/29 22:35 Order name: O2 Sat Monitoring; Complete Time: 22:41 sb4 Administered Medications: 03/29 22:44 Not Given (Physician Discretion): methylprednisolone sodium [id number] mg IM once sb4 22:52 Drug: NS 0.9% IV 1000 ml IV at 1 bolus Per protocol; 1000 mL bolus Route: IV; Rate: 1 as6 bolus; Site: right antecubital; 23:15 Follow up: Response: No adverse reaction; IV Status: Completed infusion; IV Intake: cm10 1000ml 22:52 Drug: Famotidine IVP 20 mg IVP once; dilute with 10 mL 0.9% NaCl; give over 2 minutes as6 Route: IVP; Site: right antecubital; 23:15 Follow up: Response: No adverse reaction cm10 22:52 Drug: MethylPrednisoLONE IVP 125 mg IVP once Route: IVP; Site: right antecubital; as6 23:15 Follow up: Response: No adverse reaction cm10 Disposition: 03/30 03:16 Co-signature as Attending Physician, Heath Haley MD I agree with the assessment sp4 and plan of care. I reviewed the patient's care provided by the Advanced Practice Provider and agree with the diagnosis and treatment plan. Disposition Summary: 03/30/24 00:04 Discharge Ordered Notes: Location: Home sb4 Problem: new sb4 Symptoms: have improved sb4 Condition: Stable sb4 Diagnosis - allergic reaction to unknown substance sb4 Followup: sb4 - With: Emergency Department - When: As needed - Reason: Trouble breathing, Worsening of condition Discharge Instructions: - Discharge Summary Sheet sb4 - Anaphylactic Reaction, Adult, [id number] sb4 Forms: - Patient Portal Instructions sb4 - Leadership Thank You Letter sb4 Prescriptions: - epinephrine 0.15 mg/0.3 mL Injection Auto-Injector - administer 0.3 milliliter INTRAMUSCULAR route every 5 to 15 minutes as needed sb4 for anaphylaxis; do not exceed 3 doses per episode; 3 Applicator; Refills: 0, Product Selection Permitted - Pepcid 20 mg Oral Tablet - take 1 tablet ORAL route every 12 hours for 5 days; 10 tablet; Refills: 0, sb4 Product Selection Permitted - Prednisone 20 mg Oral Tablet - take 2 tablets ORAL route once daily for 5 days; 10 tablet; Refills: 0, Product sb4 Selection Permitted Signatures: Silvio Barber RN RN as6 Catarina Alvarez PA-C PA-C sb4 Heath Haley MD MD sp4 Cherelle Barahona RN cm10
[2024-03-30 00:39] VITALS: BP 121/72; TEMP 98.8; O2SAT 94
== END 2024-03-30 00:21 | disposition home or self-care (01) ==
LOC: ER 22:30
DX: R22.9 Localized swelling, mass and lump, unspecified (principal); F17.210 Nicotine dependence, cigarettes, uncomplicated; Z91.09 Other allergy status, other than to drugs and biological substances
CPT/HCPCS: 96374; 96375; 99284; J2920; J7030